=== PATIENT | female | born 1950 | race Caucasian/White ===

== ENCOUNTER 2019-03-31 09:02 | Inpatient (IN) | payer MEDICARE ==
[~2019-03-31] VITALS: Ht 162.6 cm; Wt 50.0 kg
[~2019-03-31 09:02] MED LIST: CEPHALEXIN500 MG PO; CIPRO500 MG PO; CIPROFLOXACN500 MG PO; COMBIVENT IN; ESTROVEN PO; GENTAMICIN0.31 OP; MEDDOSEPAK OR; MULTI VIT PO; NO HOME MEDS; ULTRAM50 M1 PO; VITAMIN B-122500 MCG; ZOFRAN ODT4 MG PO
[2019-03-31 09:26] LABS: HEMATOCRIT 44.3 % (37.0-47.0); HEMOGLOBIN 14.8 g/dl (12.0-16.0); IMMATURE GRANULOCYTES 0.5 % (0.0-5.0); MEAN CELL VOLUME 93.3 fL CALC (80.0-100.0); MEAN CORPUSCULAR HGB 31.2 pG CALC (26.0-32.0); MEAN CORPUSCULAR HGB CONC 33.4 g/L CALC (32.0-36.0); NEUT# 12.4 thou/uL (2.00-7.15); RED BLOOD COUNT 4.75 mill/uL (4.20-5.60); RED CELL DISTRI WIDTH 12.3 % (11.5-15.5)
[2019-03-31] MEDS ORDERED: PROTONIX40 M2 PO (09:37)
[2019-03-31] MEDS ORDERED: SPIRIVA IN (09:39)
[2019-03-31 09:51] LABS: ALBUMIN 5.1 g/dL (3.2-5.0); ALKALINE PHOSPHATASE 100 u/l (38-126); AMYLASE 53 u/l (30-110); ANION GAP 23 (6-22 (CALC)); BILIRUBIN, TOTAL 0.6 mg/dL (0.0-1.4); BUN 16 mg/dL (8-23); BUN/CREATININE RATIO 24 (12-20 (CALC)); CARBON DIOXIDE 25 mmol/l (22-30); CHLORIDE 97 mmol/l (95-108); CREATININE 0.7 mg/dL (0.5-1.0); GFR > 60 ML/MIN (>=60 (CALC)); GFR FOR AFR.AMER. > 60 ML/MIN (>=60 (CALC)); LIPASE 87 u/l (23-300); POTASSIUM 4.2 mmol/l (3.5-5.1); SGOT/AST 38 u/l (9-36); SODIUM 141 mmol/l (137-146); TOTAL PROTEIN 8.3 g/dL (6.3-8.2)
[2019-03-31 10:09] LABS: URINE BILIRUBIN - DIPSTICK NEGATIVE (NEGATIVE); URINE BLOOD DIPSTICK TRACE-INTACT (NEGATIVE); URINE COLOR YELLOW; URINE GLUCOSE - DIPSTICK >=1000 mg/dL (NEGATIVE); URINE KETONE TRACE mg/dL (NEGATIVE); URINE LEUK ESTERASE NEGATIVE (NEGATIVE); URINE NITRITE - DIPSTICK NEGATIVE (Negative); URINE PH 7.5 (4.5-8.0); URINE PROTEIN - DIPSTICK 30 mg/dL (NEG-TRACE); URINE SPECIFIC GRAVITY 1.015; URINE UROBILINOGEN - DIPSTICK 0.2 E.U./dL (0.2)
[2019-03-31 10:12] LABS: URINE RBC 0-2 RBC/hpf (0-5); URINE WBC 0-2 WBC/hpf (0-5)
[2019-03-31 10:13] LABS: BARBITURATES NEGATIVE (NEGATIVE); COCAINE NEGATIVE (NEGATIVE); METHADONE NEGATIVE (NEGATIVE); OXCYCODONE POSITIVE (NEGATIVE); TETRAHYDROCANNABIONOL POSITIVE (NEGATIVE); TRICYLIC ANTIDEPRESSANTS NEGATIVE (NEGATIVE)
[2019-03-31 12:29] VITALS: BP 170/76
[2019-03-31 13:32] VITALS: BP 156/68
[2019-03-31 15:25] VITALS: BP 141/74
[2019-03-31 17:59] VITALS: BP 162/74
[2019-03-31 20:12] VITALS: BP 150/72
[2019-03-31 22:05] VITALS: BP 148/82
[2019-04-01] VITALS (12 sets, daily range): BP systolic 91–150; BP diastolic 44–83
[2019-04-01 05:10] LABS: HEMATOCRIT 42.3 % (37.0-47.0); IMMATURE GRANULOCYTES 0.6 % (0.0-5.0); MEAN CELL VOLUME 95.1 fL CALC (80.0-100.0); MEAN CORPUSCULAR HGB 31.5 pG CALC (26.0-32.0); MEAN CORPUSCULAR HGB CONC 33.1 g/L CALC (32.0-36.0); NEUT# 17.06 thou/uL (2.00-7.15); RED BLOOD COUNT 4.45 mill/uL (4.20-5.60); RED CELL DISTRI WIDTH 12.9 % (11.5-15.5)
[2019-04-01 08:15] LABS: ALBUMIN 4.1 g/dL (3.2-5.0); ALKALINE PHOSPHATASE 68 u/l (38-126); ANION GAP 13 (6-22 (CALC)); BILIRUBIN, TOTAL 0.8 mg/dL (0.0-1.4); BUN 13 mg/dL (8-23); BUN/CREATININE RATIO 21 (12-20 (CALC)); CARBON DIOXIDE 24 mmol/l (22-30); CHLORIDE 108 mmol/l (95-108); CREATININE 0.6 mg/dL (0.5-1.0); GFR > 60 ML/MIN (>=60 (CALC)); GFR FOR AFR.AMER. > 60 ML/MIN (>=60 (CALC)); SGOT/AST 45 u/l (9-36); SODIUM 142 mmol/l (137-146); TOTAL PROTEIN 6.7 g/dL (6.3-8.2)
[2019-04-02] VITALS (12 sets, daily range): BP systolic 95–132; BP diastolic 47–77
[2019-04-02 06:03] LABS: IMMATURE GRANULOCYTES 0.3 % (0.0-5.0); MEAN CELL VOLUME 97.6 fL CALC (80.0-100.0); MEAN CORPUSCULAR HGB 31.2 pG CALC (26.0-32.0); NEUT# 8.86 thou/uL (2.00-7.15); RED BLOOD COUNT 3.3 mill/uL (4.20-5.60); RED CELL DISTRI WIDTH 13.2 % (11.5-15.5)
[2019-04-02 06:06] LABS: ALKALINE PHOSPHATASE 47 u/l (38-126); ANION GAP 9 (6-22 (CALC)); BILIRUBIN, TOTAL 0.9 mg/dL (0.0-1.4); BUN 14 mg/dL (8-23); BUN/CREATININE RATIO 19 (12-20 (CALC)); CARBON DIOXIDE 26 mmol/l (22-30); CHLORIDE 111 mmol/l (95-108); CREATININE 0.7 mg/dL (0.5-1.0); GFR > 60 ML/MIN (>=60 (CALC)); GFR FOR AFR.AMER. > 60 ML/MIN (>=60 (CALC)); POTASSIUM 3.9 mmol/l (3.5-5.1); SGOT/AST 48 u/l (9-36); SODIUM 141 mmol/l (137-146)
[2019-04-02 06:31] LABS: HEMATOCRIT 32.2 % (37.0-47.0); HEMOGLOBIN 10.3 g/dl (12.0-16.0)
[2019-04-02 06:38] LABS: ALBUMIN 2.8 g/dL (3.2-5.0); TOTAL PROTEIN 5.1 g/dL (6.3-8.2)
[2019-04-03] VITALS: BP 122/69
[2019-04-03 02:00] VITALS: BP 116/59
[2019-04-03 04:13] VITALS: BP 100/49
[2019-04-03 05:49] LABS: HEMOGLOBIN 8.7 g/dl (12.0-16.0); MEAN CELL VOLUME 99.3 fL CALC (80.0-100.0); MEAN CORPUSCULAR HGB 30.9 pG CALC (26.0-32.0); MEAN CORPUSCULAR HGB CONC 31.1 g/L CALC (32.0-36.0); RED BLOOD COUNT 2.82 mill/uL (4.20-5.60); RED CELL DISTRI WIDTH 13.3 % (11.5-15.5)
[2019-04-03 05:56] LABS: ANION GAP 9 (6-22 (CALC)); BUN 13 mg/dL (8-23); BUN/CREATININE RATIO 21 (12-20 (CALC)); CARBON DIOXIDE 24 mmol/l (22-30); CHLORIDE 112 mmol/l (95-108); CREATININE 0.6 mg/dL (0.5-1.0); GFR > 60 ML/MIN (>=60 (CALC)); GFR FOR AFR.AMER. > 60 ML/MIN (>=60 (CALC)); POTASSIUM 3.6 mmol/l (3.5-5.1); SODIUM 141 mmol/l (137-146)
[2019-04-03 09:14] VITALS: BP 139/40
[2019-04-03 15:35] VITALS: BP 138/77
[2019-04-03 19:11] VITALS: BP 127/62
[2019-04-04 04:30] VITALS: BP 123/78
[2019-04-04 05:25] LABS: HEMATOCRIT 33.7 % (37.0-47.0); HEMOGLOBIN 10.6 g/dl (12.0-16.0); IMMATURE GRANULOCYTES 2.6 % (0.0-5.0); MEAN CELL VOLUME 99.1 fL CALC (80.0-100.0); MEAN CORPUSCULAR HGB 31.2 pG CALC (26.0-32.0); MEAN CORPUSCULAR HGB CONC 31.5 g/L CALC (32.0-36.0); NEUT# 7.87 thou/uL (2.00-7.15); RED BLOOD COUNT 3.4 mill/uL (4.20-5.60); RED CELL DISTRI WIDTH 12.8 % (11.5-15.5)
[2019-04-04 05:44] LABS: ANION GAP 16 (6-22 (CALC)); BUN 11 mg/dL (8-23); BUN/CREATININE RATIO 18 (12-20 (CALC)); CARBON DIOXIDE 20 mmol/l (22-30); CHLORIDE 109 mmol/l (95-108); CREATININE 0.6 mg/dL (0.5-1.0); GFR > 60 ML/MIN (>=60 (CALC)); GFR FOR AFR.AMER. > 60 ML/MIN (>=60 (CALC)); POTASSIUM 3.2 mmol/l (3.5-5.1); SODIUM 142 mmol/l (137-146)
[2019-04-04 07:47] VITALS: BP 147/61
[2019-04-04 15:06] VITALS: BP 145/60
[2019-04-04 18:45] VITALS: BP 156/77
[2019-04-05 03:57] VITALS: BP 98/54
[2019-04-05 05:36] LABS: HEMOGLOBIN 9.7 g/dl (12.0-16.0); IMMATURE GRANULOCYTES 3.1 % (0.0-5.0); MEAN CELL VOLUME 93.5 fL CALC (80.0-100.0); MEAN CORPUSCULAR HGB 31.3 pG CALC (26.0-32.0); MEAN CORPUSCULAR HGB CONC 33.4 g/L CALC (32.0-36.0); NEUT# 4.09 thou/uL (2.00-7.15); RED BLOOD COUNT 3.1 mill/uL (4.20-5.60); RED CELL DISTRI WIDTH 12.4 % (11.5-15.5)
[2019-04-05 05:50] LABS: ANION GAP 8 (6-22 (CALC)); BUN 6 mg/dL (8-23); BUN/CREATININE RATIO 10 (12-20 (CALC)); CHLORIDE 106 mmol/l (95-108); CREATININE 0.6 mg/dL (0.5-1.0); GFR > 60 ML/MIN (>=60 (CALC)); GFR FOR AFR.AMER. > 60 ML/MIN (>=60 (CALC)); MAGNESIUM 1.6 mg/dL (1.6-2.3); POTASSIUM 2.9 mmol/l (3.5-5.1); SODIUM 138 mmol/l (137-146)
[2019-04-05 06:08] LABS: CARBON DIOXIDE 27 mmol/l (22-30)
[2019-04-05 07:56] VITALS: BP 117/65
[2019-04-05 16:26] VITALS: BP 126/61
[2019-04-05 19:07] VITALS: BP 131/68
[2019-04-06 04:44] VITALS: BP 122/70
[2019-04-06 05:59] LABS: HEMATOCRIT 28.9 % (37.0-47.0); HEMOGLOBIN 9.7 g/dl (12.0-16.0); MEAN CELL VOLUME 92.9 fL CALC (80.0-100.0); MEAN CORPUSCULAR HGB 31.2 pG CALC (26.0-32.0); MEAN CORPUSCULAR HGB CONC 33.6 g/L CALC (32.0-36.0); RED BLOOD COUNT 3.11 mill/uL (4.20-5.60); RED CELL DISTRI WIDTH 12.6 % (11.5-15.5)
[2019-04-06 06:27] LABS: ANION GAP 9 (6-22 (CALC)); BUN 4 mg/dL (8-23); BUN/CREATININE RATIO 7 (12-20 (CALC)); CARBON DIOXIDE 29 mmol/l (22-30); CHLORIDE 105 mmol/l (95-108); CREATININE 0.5 mg/dL (0.5-1.0); GFR > 60 ML/MIN (>=60 (CALC)); GFR FOR AFR.AMER. > 60 ML/MIN (>=60 (CALC)); SODIUM 140 mmol/l (137-146)
[2019-04-06 06:31] LABS: POTASSIUM 2.8 mmol/l (3.5-5.1)
[2019-04-06 08:09] VITALS: BP 149/48
[2019-04-06 16:00] VITALS: BP 151/80
[2019-04-06 19:07] VITALS: BP 135/70
[2019-04-07 04:43] VITALS: BP 116/64
[2019-04-07 06:24] LABS: HEMATOCRIT 32.4 % (37.0-47.0); HEMOGLOBIN 10.5 g/dl (12.0-16.0); MEAN CELL VOLUME 95.3 fL CALC (80.0-100.0); MEAN CORPUSCULAR HGB 30.9 pG CALC (26.0-32.0); MEAN CORPUSCULAR HGB CONC 32.4 g/L CALC (32.0-36.0); RED BLOOD COUNT 3.4 mill/uL (4.20-5.60); RED CELL DISTRI WIDTH 12.9 % (11.5-15.5)
[2019-04-07 06:44] LABS: ANION GAP 11 (6-22 (CALC)); BUN 3 mg/dL (8-23); BUN/CREATININE RATIO 6 (12-20 (CALC)); CARBON DIOXIDE 31 mmol/l (22-30); CHLORIDE 102 mmol/l (95-108); CREATININE 0.5 mg/dL (0.5-1.0); GFR > 60 ML/MIN (>=60 (CALC)); GFR FOR AFR.AMER. > 60 ML/MIN (>=60 (CALC)); SODIUM 140 mmol/l (137-146)
[2019-04-07 06:45] LABS: POTASSIUM 3.8 mmol/l (3.5-5.1)
[2019-04-07 08:07] VITALS: BP 146/84
[2019-04-07] MEDS ORDERED: PERCOCET 5/325M1 TAB PO (10:48)
== END 2019-04-07 13:00 | disposition home or self-care (01) | DRG 330 ==
LOC: ED 09:02 → ED-I 11:17 → ED 11:43 → ICU 11:44 → MS2 21:24
PROVIDERS: Family Medicine; Nurse Practitioner Family; Surgery; ADMIT Internal Medicine; ATTEND Internal Medicine
PROC: 0DB80ZZ Excision of Small Intestine, Open Approach (ICD-10-PCS; principal; 2019-04-01)
PROC: 0DSH0ZZ Reposition Cecum, Open Approach (ICD-10-PCS; 2019-04-01)
PROC: 0DTJ0ZZ Resection of Appendix, Open Approach (ICD-10-PCS; 2019-04-01)
PROC: 0WJP4ZZ Inspection of Gastrointestinal Tract, Percutaneous Endoscopic Approach (ICD-10-PCS; 2019-04-01)
DX: K56.2 Volvulus (principal); K55.8 Other vascular disorders of intestine; E87.2 Acidosis; D62 Acute posthemorrhagic anemia; N39.0 Urinary tract infection, site not specified; E87.6 Hypokalemia; J44.9 Chronic obstructive pulmonary disease, unspecified; K21.9 Gastro-esophageal reflux disease without esophagitis; R73.9 Hyperglycemia, unspecified; F17.210 Nicotine dependence, cigarettes, uncomplicated
CPT/HCPCS: J0131; J1100; J2710; Q9967

== ENCOUNTER 2022-12-31 17:59 | Observation (INO) | payer MEDICARE ==
[~2022-12-31] VITALS: Ht 162.6 cm; Wt 46.7 kg
[2022-12-31] VITALS (23 sets, daily range): BP systolic 71–155; BP diastolic 52–88
[~2022-12-31 17:59] MED LIST changes: +ALBUTEROL SUL0.083 % IN; +ANORO ELLIPTA 61 AER IN; +ASPIRIN81 MG PO; +MULTIVITAMI9 PO; +PERCOCET 5/325M1 TAB PO; +PROBIOTI2 PO; +PROTONIX40 M2 PO; +SPIRIVA IN; +TRELEGY ELLIPTA1 AER; +ZOLOFT25 MG PO
[2022-12-31 19:05] LABS: ALBUMIN 4.3 g/dL (3.2-5.0); ALKALINE PHOSPHATASE 80 u/l (38-126); BUN 9 mg/dL (8-23); BUN/CREATININE RATIO 15 (12-20 (CALC)); CARBON DIOXIDE 30 mmol/l (22-30); CHLORIDE 92 mmol/l (95-108); CREATININE 0.6 mg/dL (0.5-1.0); GFR FOR AFR.AMER. > 60 ML/MIN (>=60 (CALC)); GFR OTHER RACES > 60 ML/MIN (>=60 (CALC)); POTASSIUM 3.8 mmol/l (3.5-5.1); TOTAL PROTEIN 7.3 g/dL (6.3-8.2)
[2022-12-31 19:06] LABS: BASO% 0.3 % (0-3); EOS% 0.7 % (0-8); HEMATOCRIT 43.5 % (37.0-47.0); HEMOGLOBIN 14.2 g/dl (12.0-16.0); IMMATURE GRANULOCYTES 0.3 % (0.0-5.0); LYMPH% 24.1 % (15-41); MEAN CORPUSCULAR HGB 29.9 pG CALC (26.0-32.0); MEAN CORPUSCULAR HGB CONC 32.6 g/dL CAL (32.0-36.0); NEUT# 3.68 thou/uL (2.00-7.15); NEUT% 63.6 % (42-76); RED BLOOD COUNT 4.75 mill/uL (4.20-5.60); RED CELL DISTRI WIDTH 12.5 % (11.5-15.5)
[2022-12-31 19:07] LABS: ANION GAP 10 (6-22 (CALC)); BILIRUBIN, TOTAL 0.6 mg/dL (0.02-1.3); MEAN CELL VOLUME 91.6 fL CALC (80.0-100.0); SGOT/AST 61 u/l (9-36); SODIUM 128 mmol/l (137-146)
[2022-12-31 20:06] LABS: URINE BILIRUBIN - DIPSTICK NEGATIVE (NEGATIVE); URINE BLOOD DIPSTICK NEGATIVE (NEGATIVE); URINE COLOR YELLOW; URINE GLUCOSE - DIPSTICK NEGATIVE (NEGATIVE); URINE KETONE NEGATIVE (NEGATIVE); URINE LEUK ESTERASE TRACE (NEGATIVE); URINE PH 6.5 (4.5-8.0); URINE PROTEIN - DIPSTICK NEGATIVE (NEG-TRACE); URINE UROBILINOGEN - DIPSTICK 0.2 E.U./dL (0.2)
[2022-12-31 20:09] LABS: URINE NITRITE - DIPSTICK NEGATIVE (Negative)
[2022-12-31 20:53] LABS: D-DIMER 0.99 mg/L (0.19-0.60); PROTHROMBIN TIME 9.8 SECONDS (9.0-12.5)
[2023-01-01] VITALS (10 sets, daily range): BP systolic 105–141; BP diastolic 56–84
[2023-01-01] MEDS ORDERED: SPIRIVA HANDIH18 MCG IN (11:18)
[2023-01-02 04:14] VITALS: BP 104/54
[2023-01-02 04:59] VITALS: BP 104/54
[2023-01-02 05:43] LABS: IMMATURE GRANULOCYTES 0.4 % (0.0-5.0); LYMPH% 9.6 % (15-41); MEAN CELL VOLUME 93.6 fL CALC (80.0-100.0); MEAN CORPUSCULAR HGB 30.3 pG CALC (26.0-32.0); MEAN CORPUSCULAR HGB CONC 32.3 g/dL CAL (32.0-36.0); MONO% 5.3 % (2-13); NEUT# 6.08 thou/uL (2.00-7.15); NEUT% 84.7 % (42-76); RED BLOOD COUNT 3.9 mill/uL (4.20-5.60); RED CELL DISTRI WIDTH 12.5 % (11.5-15.5)
[2023-01-02 05:53] LABS: HEMATOCRIT 36.5 % (37.0-47.0); HEMOGLOBIN 11.8 g/dl (12.0-16.0)
[2023-01-02 06:16] LABS: ALKALINE PHOSPHATASE 63 u/l (38-126); BUN 12 mg/dL (8-23); BUN/CREATININE RATIO 21 (12-20 (CALC)); CARBON DIOXIDE 33 mmol/l (22-30); CHLORIDE 100 mmol/l (95-108); CREATININE 0.6 mg/dL (0.5-1.0); GFR FOR AFR.AMER. > 60 ML/MIN (>=60 (CALC)); GFR OTHER RACES > 60 ML/MIN (>=60 (CALC)); POTASSIUM 4.2 mmol/l (3.5-5.1); SGOT/AST 45 u/l (9-36)
[2023-01-02 06:24] LABS: ALBUMIN 3.2 g/dL (3.2-5.0); ANION GAP 7 (6-22 (CALC)); SODIUM 136 mmol/l (137-146); TOTAL PROTEIN 5.7 g/dL (6.3-8.2)
[2023-01-02 07:10] VITALS: BP 136/83
[2023-01-02] MEDS ORDERED: PREDNISONE10 MG PO (11:11)
[2023-01-02] MEDS ORDERED: AMBIEN5 MG PO (11:12)
== END 2023-01-02 15:40 | disposition home or self-care (01) ==
LOC: ED 17:59 → MS2 23:02
PROVIDERS: Emergency Medicine; Family Medicine; Nurse Practitioner Family; ADMIT Internal Medicine; ATTEND Internal Medicine
DX: J44.1 Chronic obstructive pulmonary disease with (acute) exacerbation (principal); K21.9 Gastro-esophageal reflux disease without esophagitis; R09.02 Hypoxemia
CPT/HCPCS: J1650; Q9967

== ENCOUNTER 2023-04-21 11:02 | Day surgery (SDC) | payer MEDICARE ==
[~2023-04-21] VITALS: Ht 162.6 cm; Wt 49.9 kg
[~2023-04-21 11:02] MED LIST changes: +ALBUTEROL SULFATE IH; +AMBIEN5 MG PO; +DOCUSATE CAL240 MG PO; +IBUPROFEN200 MG PO; +OMEPRAZOLE DR40 MG PO; +PREDNISONE10 MG PO; +SPIRIVA HANDIH18 MCG IN; +TRELEGY ELLIPTA1 AER IH
[2023-04-21] MEDS ORDERED: XANAX0.25 MG PO (11:24)
[2023-04-21 14:35] VITALS: BP 114/64
== END 2023-04-21 12:30 | disposition home or self-care (01) ==
LOC: ENDO 11:02 → ORM 14:00 → ENDO 15:30
PROVIDERS: ATTEND Internal Medicine Gastroenterology
PROC: 0DJD8ZZ Inspection of Lower Intestinal Tract, Via Natural or Artificial Opening Endoscopic (ICD-10-PCS; principal; 2023-04-21)
PROC: 0DB48ZX Excision of Esophagogastric Junction, Via Natural or Artificial Opening Endoscopic, Diagnostic (ICD-10-PCS; 2023-04-21)
PROC: 0DB78ZX Excision of Stomach, Pylorus, Via Natural or Artificial Opening Endoscopic, Diagnostic (ICD-10-PCS; 2023-04-21)
DX: K21.00 Gastro-esophageal reflux disease with esophagitis, without bleeding (principal); K29.50 Unspecified chronic gastritis without bleeding; Z12.11 Encounter for screening for malignant neoplasm of colon; K57.30 Diverticulosis of large intestine without perforation or abscess without bleeding; K64.8 Other hemorrhoids; Z90.49 Acquired absence of other specified parts of digestive tract; Z87.19 Personal history of other diseases of the digestive system
CPT/HCPCS: 43239; G0121

== ENCOUNTER 2024-04-13 08:33 | Observation (INO) | payer MEDICARE ==
[2024-04-13] VITALS (14 sets, daily range): BP systolic 100–154; BP diastolic 58–103
[~2024-04-13] VITALS: Ht 162.6 cm; Wt 47.7 kg
[~2024-04-13 08:33] MED LIST changes: +XANAX0.25 MG PO
--- NOTE | 2024-04-13 08:39 | NUR ---
PATIENT TO ROOM 1 VIA WHEELCHAIR WITH HER SON
[2024-04-13] MEDS ORDERED: DOXYCYCLINE HYCLATE 100 MG in SODIUM CHLORIDE 0.9% 100 ML IV ONE (09:05)
[2024-04-13] MEDS ORDERED: cefTRIAXone SODIUM 2 GM in SODIUM CHLORIDE 0.9% 100 ML IV ONE (09:05)
[2024-04-13] MEDS ORDERED: methylPREDNISolone SODIUM SUCC 125 MG/2 ML SDV IV ONE (09:05)
[2024-04-13] MEDS ORDERED: IPRATROPIUM-Albuterol 0.5MG-2.5MG/3 ML NEB ONE (09:05)
[2024-04-13 09:23] LABS: BASO% 0.5 % (0-3); EOS% 2.5 % (0-8); HEMATOCRIT 43.1 % (37.0-47.0); HEMOGLOBIN 13.7 g/dl (12.0-16.0); IMMATURE GRANULOCYTES 0.2 % (0.0-5.0); LYMPH% 25.4 % (15-41); MEAN CELL VOLUME 97.7 fL CALC (80.0-100.0); MEAN CORPUSCULAR HGB 31.1 pG CALC (26.0-32.0); MEAN CORPUSCULAR HGB CONC 31.8 g/dL CAL (32.0-36.0); MONO% 8.4 % (2-13); NEUT# 4.12 thou/uL (2.00-7.15); RED BLOOD COUNT 4.41 mill/uL (4.20-5.60); RED CELL DISTRI WIDTH 12.3 % (11.5-15.5)
[2024-04-13 09:35] LABS: ALBUMIN 4.5 g/dL (3.2-5.0); ALKALINE PHOSPHATASE 77 u/l (38-126); ANION GAP 7 (6-22 (CALC)); BILIRUBIN, TOTAL 0.6 mg/dL (0.02-1.3); BUN 7 mg/dL (8-23); BUN/CREATININE RATIO 12 (12-20 (CALC)); CARBON DIOXIDE 31 mmol/l (22-30); CHLORIDE 104 mmol/l (95-108); CREATININE 0.6 mg/dL (0.5-1.0); ESTIMATED GFR 95 ML/MIN (>=90 (CALC)); POTASSIUM 4.3 mmol/l (3.5-5.1); SGOT/AST 39 u/l (9-36); SODIUM 138 mmol/l (137-146); TOTAL PROTEIN 7.6 g/dL (6.3-8.2)
--- NOTE | 2024-04-13 09:50 | NUR ---
PT ASSISTED TO BATHROOM VIA WHEELCHAIR. SHORTNESS OF BREATH NOTED WITH MINIMAL EXERTION. O2 AT 3L VIA NC.
--- NOTE | 2024-04-13 10:42 | NUR ---
TO RADIOLOGY VIA WHEELCHAIR
[2024-04-13] MEDS ORDERED: DALIRESP250 MCG PO (11:38)
[2024-04-13] MEDS ORDERED: VENTOLIN HFA108 MCG INHW/SPAC (11:39)
--- NOTE | 2024-04-13 12:07 | NUR ---
PT RESTING QUIETLY
--- NOTE | 2024-04-13 13:15 | NUR ---
REPORT CALLED TO TAMMI MAN
[2024-04-13] MEDS ORDERED: SODIUM CHLORIDE 0.9% 1,000 ML IV PRN (13:30)
[2024-04-13] MEDS ORDERED: ACETAMINOPHEN 325 MG/TAB PO PRN (13:30)
[2024-04-13] MEDS ORDERED: MAGNESIUM HYDROXIDE 30 ML UDC PO PRN (13:30)
[2024-04-13] MEDS ORDERED: ALPRAZolam 0.25 MG PO PRN (13:40)
--- NOTE | 2024-04-13 13:40 | NUR ---
PATIENT ARRIVED TO SD FROM THE ED VIA WC. PATIENT A&OX3. IV IN RAC SL; SITE CLEAN AND INTACT. PT ON 2L OF O2 VIA NC.TELE INTACT. ASSESSMENT COMPLETED. BSC NEAR BED AND WITHIN REACH. EDUCATED PT ON SAFETY PRECAUTIONS AND CALL LIGHT USE. BED IN LOWEST POSITION. PERSONAL ITEMS WITHIN REACH, WELL CALL LIGHT; PT VERBALIZED UNDERSTANDING OF USE.
[2024-04-13] MEDS ORDERED: MAGNESIUM SULFATE HEPTAHYDRATE 50 ML IV ONE (14:40)
[2024-04-13] MEDS ORDERED: LEVALBUTEROL HCL 1.25 MG/3 ML VIAL NEB SCH (15:00)
[2024-04-13] MEDS ORDERED: IPRATROPIUM-Albuterol 0.5MG-2.5MG/3 ML NEB SCH (15:00)
[2024-04-13] MEDS ORDERED: IPRATROPIUM BROMIDE 0.5 MG/2.5 ML SOL IN SCH (15:00)
--- NOTE | 2024-04-13 15:57 | NUR ---
BOOKED A PSYCHIATRY CONSULT WITH DR MOSS VIA THE [facility] AT 1557 HRS.
[2024-04-13] MEDS ORDERED: FLUTICASONE PROPIONATE (Nasal) 50MCG/SPRAY INH SCH (16:00)
--- NOTE | 2024-04-13 16:00 | NUR ---
PATIENT SITTING HIGH-FOWLERS ON BED. IV IN RAC INFUSING MAG @25MLS PER EMAR; SITE CLEAN AND INTACT. TELE INTACT. BSC WITHIN REACH. BREATHING EVEN AND UNLABORED ON 2L VIA NC. DENIES ANY N/D/V. DENIES ANY PAIN. BED IN LOWEST POSITION. CALL LIGHT WITHIN REACH; VERBALIZED UNDERSTANDING OF USE.
--- NOTE | 2024-04-13 20:00 | NUR ---
PT SITTING IN CHAIR NO DISTRESS NOTED. VS WNL ON NC 2L LUNG SOUNDS WITH EX WHEEZING. SCATTERED BRUISING NO EDEMA. PT ABLE TO AMBULATE INDEPENDENTLY AND USES BSC. IV SITE FLUSHED WORKING PROPERLY SL. CALL LIGHT WITHIN REACH. PLAN OF CARE ONGOING
[2024-04-13] MEDS ORDERED: DOXYCYCLINE HYCLATE 100 MG/CAP PO SCH (21:00)
[2024-04-13] MEDS ORDERED: ENOXAPARIN SODIUM 40 MG/0.4 ML SYR SC SCH (21:00)
[2024-04-13] MEDS ORDERED: methylPREDNISolone Sod Succ 40 MG/ML SDV IV SCH (21:00)
--- NOTE | 2024-04-14 | NUR ---
PT SLEEPING NO DISTRESS NOTED ON EXAM. BREATHING EVENLY. CALL LIGHT WITHIN REACH. PLAN OF CARE ONGOING.
[2024-04-14 00:04] VITALS: BP 117/78
--- NOTE | 2024-04-14 04:00 | NUR ---
PT RESTING NO DISTRESS NOTED ON EXAM. CALL LIGHT WITHIN REACH. PLAN OF CARE ONGOING.
[2024-04-14 04:28] VITALS: BP 110/70
[2024-04-14 05:28] LABS: HEMOGLOBIN 11.9 g/dl (12.0-16.0); IMMATURE GRANULOCYTES 0.6 % (0.0-5.0); LYMPH% 13.7 % (15-41); MEAN CELL VOLUME 97.1 fL CALC (80.0-100.0); MEAN CORPUSCULAR HGB 31.2 pG CALC (26.0-32.0); MEAN CORPUSCULAR HGB CONC 32.2 g/dL CAL (32.0-36.0); NEUT# 2.72 thou/uL (2.00-7.15); NEUT% 82.7 % (42-76); RED BLOOD COUNT 3.81 mill/uL (4.20-5.60); RED CELL DISTRI WIDTH 12.2 % (11.5-15.5)
[2024-04-14 05:39] LABS: ALBUMIN 3.8 g/dL (3.2-5.0); CHOLESTEROL HDL RATIO 2.3 (<4.4 (CALC)); CREATININE 0.6 mg/dL (0.5-1.0); POTASSIUM 4.4 mmol/l (3.5-5.1); TOTAL PROTEIN 6.2 g/dL (6.3-8.2)
[2024-04-14 05:43] LABS: BILIRUBIN, TOTAL 0.3 mg/dL (0.02-1.3); MAGNESIUM 2.2 mg/dL (1.6-2.3)
[2024-04-14 06:56] VITALS: BP 132/77
--- NOTE | 2024-04-14 08:31 | NUR ---
patient a/o x3; on 2l of ; breathing unlabored and even; denied any SOB; denied any n/d/v at this time; patient complaint of a headache, medicated with tylenol; tele leads are attached and working with no issues; iv site clean and intact running with NS @100; patinet sitting semi xavier in bed eating breakfast; family in room with patinet; call light within reach,verablized understanding on how to use, personal items within reach, bed in lowest postion; no complaints at this time
[2024-04-14] MEDS ORDERED: SERTRALINE HCL 25 MG/TAB PO SCH (09:00)
[2024-04-14] MEDS ORDERED: DOCUSATE CALCIUM 240 MG/CAP PO PRN (09:00)
[2024-04-14] MEDS ORDERED: PANTOPRAZOLE SODIUM Sesquihydr 40 MG/TAB PO SCH (09:00)
[2024-04-14 10:45] VITALS: BP 131/75
--- NOTE | 2024-04-14 12:00 | NUR ---
patient a/o x3; on 2l of ; breathing unlabored; denied any pain; denied any n/d/v at this time; tele leads are attached and working with no issues; iv site clean and intcat running with NS @10; no s/s of distress at this time; medication reviewed; patient sitting semi folwer postion in bed;call light within reach,verbalized understanding on how to use, personal items within reach, bed in lowest postion; bsc within reach, no complaints at this time
[2024-04-14] MEDS ORDERED: PATIENT' OWN MED 1 EA DOSE PO PRN (13:45)
--- NOTE | 2024-04-14 15:13 | NUR ---
PT COMPLAINING OF HAVING A HIGH HR AT ALL TIMES, EVEN IMMEDIATLY AFTER WAKING FROM A 2 HR NAP
--- NOTE | 2024-04-14 16:35 | NUR ---
patient a/o x3; asssited patient off bsc with no issues; denied any pain; denied any n/d/v at this time; denied needing anything at this time; tele leads are attached and working with no issues; bsc within reach, call light within reach,verbalized understanding on how to use, personal items within reach, bed in lowest postion; no complaints
[2024-04-14 17:00] VITALS: BP 128/71
[2024-04-14 19:25] VITALS: BP 114/57
--- NOTE | 2024-04-14 19:52 | NUR ---
BEDSIDE SHIFT REPORT COMPLETED. AWAKE, ALERT, ORIENTED X3. DENIES PAIN OR DISCOMFORT AT CURRENT TIME. CALL LIGHT IN REACH.
[2024-04-14] MEDS ORDERED: predniSONE 20 MG/TAB PO SCH (21:22)
--- NOTE | 2024-04-14 23:00 | NUR ---
IV SITE DISLODGED ACCIDENTLY. DOES NOT WANT ANOTHER PUT IN. NOTIFIED DR. HARVEY. NEW ORDERS RECEIVED FOR IV SOLUMEDROL TO CHANGED TO PREDNISONE. NOTIFIED PATIENT OF NEW ORDERS. XANAX GIVEN PER REQUEST FOR ANXIETY. FORGETFUL. ASKED SAME QUESTIONS SEVERAL TIMES.
[2024-04-15 00:22] VITALS: BP 128/78
--- NOTE | 2024-04-15 04:00 | NUR ---
HR INCREASES TO 100-120S WHEN AMBULATING TO BATHROOM. GETS SHORT OF BREATH. RETURNS TO BASELINE ONCE BACK IN BED. DENIES PAIN OR DISCOMFORT.
[2024-04-15 04:41] VITALS: BP 148/75
[2024-04-15 04:56] LABS: BASO% 0.2 % (0-3); HEMATOCRIT 37.7 % (37.0-47.0); HEMOGLOBIN 11.9 g/dl (12.0-16.0); IMMATURE GRANULOCYTES 0.2 % (0.0-5.0); MEAN CELL VOLUME 98.7 fL CALC (80.0-100.0); MEAN CORPUSCULAR HGB 31.2 pG CALC (26.0-32.0); MEAN CORPUSCULAR HGB CONC 31.6 g/dL CAL (32.0-36.0); MONO% 3.7 % (2-13); NEUT# 5.05 thou/uL (2.00-7.15); NEUT% 85.9 % (42-76); RED BLOOD COUNT 3.82 mill/uL (4.20-5.60); RED CELL DISTRI WIDTH 12.3 % (11.5-15.5)
[2024-04-15 05:05] LABS: ALBUMIN 3.5 g/dL (3.2-5.0); BILIRUBIN, TOTAL 0.2 mg/dL (0.02-1.3); CREATININE 0.6 mg/dL (0.5-1.0); POTASSIUM 4.8 mmol/l (3.5-5.1); TOTAL PROTEIN 5.9 g/dL (6.3-8.2)
[2024-04-15] MEDS ORDERED: PREDNISONE50 MG PO (05:51)
[2024-04-15] MEDS ORDERED: ZOLOFT25 MG PO (05:51)
[2024-04-15] MEDS ORDERED: OMNICEF300 MG PO (05:52)
[2024-04-15] MEDS ORDERED: VIBRAMYCIN100 M2 PO (05:52)
[2024-04-15 06:13] VITALS: BP 147/90
--- NOTE | 2024-04-15 07:30 | NUR ---
PT IS AOX4, SITTING UP IN BED, RESPIRATIONS ARE EVEN AND LABORED ON 2L O2, LUNGS WITH EXPIRATORY WHEEZING, BOWEL SOUNDS ACTIVE, PEDAL PULSES PALPABLE TO TOUCH, PT DENIES PAIN AT THIS TIME.
--- NOTE | 2024-04-15 08:39 | NUR ---
PRN XANAX GIVEN FOR PT REPORTED ANXIETY.
--- NOTE | 2024-04-15 10:26 | NUR ---
DR HARVEY AT BEDSIDE DISCUSSING PLAN OF CARE WITH PT AT THIS TIME.
[2024-04-15] MEDS ORDERED: PATIENT' OWN MED 1 EA DOSE IN SCH (10:30)
--- NOTE | 2024-04-15 12:03 | NUR ---
PT SITTING UP IN BED WATCHING TV. PT DENIES PAIN AT THIS TIME. STSTES SHE IS WAITING ON HER SON TO ARRIVE TO PICK HER UP.
--- NOTE | 2024-04-15 13:30 | NUR ---
Report received, taking over care of patient from previous nurse. Patient is resting in bed, denies any pain. On 2L NC, ST on tele monitor. VS WNL. Patient will be discharged today, waiting on son to get off work to pick her up. All needs addressed at this time, call light within.
--- NOTE | 2024-04-15 15:30 | NUR ---
Discharge instructions given. Patient verbalizes understanding of all discharge instructions. All questions answered. Discharged in stable condition via wheelchair to Home with staff. All belongings and home meds sent with patient.
== END 2024-04-15 15:36 | disposition home or self-care (01) ==
LOC: ED 08:33 → ED-I 09:38 → ED 11:31 → MS2 11:32
PROVIDERS: Family Medicine; ADMIT Student in an Organized Health Care Education/Training Program; ATTEND Student in an Organized Health Care Education/Training Program
DX: J44.1 Chronic obstructive pulmonary disease with (acute) exacerbation (principal); J96.02 Acute respiratory failure with hypercapnia; F41.1 Generalized anxiety disorder; F41.0 Panic disorder [episodic paroxysmal anxiety]; F32.9 Major depressive disorder, single episode, unspecified; R64 Cachexia; Z68.1 Body mass index [BMI] 19.9 or less, adult; K21.9 Gastro-esophageal reflux disease without esophagitis; F17.210 Nicotine dependence, cigarettes, uncomplicated; Z99.81 Dependence on supplemental oxygen; Z63.72 Alcoholism and drug addiction in family; Z20.822 Contact with and (suspected) exposure to COVID-19
CPT/HCPCS: J1650; J3475; Q9967

== ENCOUNTER 2024-11-05 21:16 | Emergency (ER) | payer MEDICARE ==
[~2024-11-05] VITALS: Ht 162.6 cm; Wt 45.5 kg
[~2024-11-05 21:16] MED LIST changes: +DALIRESP250 MCG PO; +OMNICEF300 MG PO; +PREDNISONE50 MG PO; +VENTOLIN HFA108 MCG INHW/SPAC; +VIBRAMYCIN100 M2 PO
[2024-11-05] MEDS ORDERED: IPRATROPIUM-Albuterol 0.5MG-2.5MG/3 ML NEB ONE (21:30)
[2024-11-05] MEDS ORDERED: methylPREDNISolone SODIUM SUCC 125 MG/2 ML SDV IV ONE (21:30)
[2024-11-05 21:31] VITALS: BP 157/75
[2024-11-05] MEDS ORDERED: KETOROLAC TROMETHAMINE 30 MG/ML SDV IV ONE (21:35)
[2024-11-05] MEDS ORDERED: ALBUTEROL SULFATE 2.5 MG VIAL IN ONE (21:35)
[2024-11-05 21:47] LABS: BASO% 0.1 % (0-3); IMMATURE GRANULOCYTES 0.5 % (0.0-5.0); LYMPH% 6.3 % (15-41); MEAN CELL VOLUME 97.9 fL CALC (80.0-100.0); MEAN CORPUSCULAR HGB 30.9 pG CALC (26.0-32.0); MEAN CORPUSCULAR HGB CONC 31.6 g/dL CAL (32.0-36.0); NEUT# 20.04 thou/uL (2.00-7.15); NEUT% 85.1 % (42-76); RED BLOOD COUNT 4.66 mill/uL (4.20-5.60); RED CELL DISTRI WIDTH 12.2 % (11.5-15.5)
[2024-11-05 21:48] LABS: HEMATOCRIT 45.6 % (37.0-47.0); HEMOGLOBIN 14.4 g/dl (12.0-16.0)
[2024-11-05 22:01] VITALS: BP 125/75
[2024-11-05 22:01] LABS: ALBUMIN 4.6 g/dL (3.2-5.0); BILIRUBIN, TOTAL 0.9 mg/dL (0.02-1.3); CREATININE 0.7 mg/dL (0.5-1.0); POTASSIUM 4.4 mmol/l (3.5-5.1); TOTAL PROTEIN 7.6 g/dL (6.3-8.2)
[2024-11-05 22:31] VITALS: BP 112/49
[2024-11-05 23:00] VITALS: BP 114/66
[2024-11-05] MEDS ORDERED: SODIUM CHLORIDE 0.9% 1,000 ML IV ONE (23:25)
[2024-11-05 23:30] VITALS: BP 116/66
[2024-11-06] VITALS: BP 123/65
[2024-11-06] MEDS ORDERED: DOXYCYCLINE HYCLATE 100 MG/CAP PO ONE (00:10)
[2024-11-06 00:18] LABS: URINE BILIRUBIN - DIPSTICK Negative (NEGATIVE); URINE BLOOD DIPSTICK Negative (NEGATIVE); URINE COLOR Yellow; URINE GLUCOSE - DIPSTICK Negative (NEGATIVE); URINE KETONE Negative (NEGATIVE); URINE LEUK ESTERASE Negative (NEGATIVE); URINE NITRITE - DIPSTICK Negative (Negative); URINE PROTEIN - DIPSTICK 30 mg/dL (NEG-TRACE); URINE UROBILINOGEN - DIPSTICK 0.2 E.U./dL (0.2)
[2024-11-06 00:25] LABS: URINE BACTERIA FEW hpf; URINE EPITHELIAL CELLS FEW EPI/hpf (0-FEW); URINE MUCUS MODERATE hpf (NONE-FEW); URINE WBC 0-2 WBC/hpf (0-5)
[2024-11-06 00:26] LABS: URINE HYALINE CAST RARE lpf (NONE-RARE)
[2024-11-06 01:22] VITALS: BP 123/65
== END 2024-11-06 00:15 | disposition short-term general hospital (02) ==
LOC: ED 21:16
PROVIDERS: Family Medicine
DX: S72.012A Unspecified intracapsular fracture of left femur, initial encounter for closed fracture (principal); J44.1 Chronic obstructive pulmonary disease with (acute) exacerbation; J43.9 Emphysema, unspecified; F17.200 Nicotine dependence, unspecified, uncomplicated; W18.30XA Fall on same level, unspecified, initial encounter; Y92.009 Unspecified place in unspecified non-institutional (private) residence as the place of occurrence of the external cause; Z99.81 Dependence on supplemental oxygen; Z20.822 Contact with and (suspected) exposure to COVID-19